=== PATIENT | male | born 1955 | race Caucasian/White ===

== ENCOUNTER 2024-06-12 11:44 | Day surgery (SDC) | payer BC ==
[~2024-06-12] VITALS: Ht 190.5 cm; Wt 113.4 kg
[~2024-06-12 11:44] MED LIST: ATROPINE SULFATE 1% OPHTH SOLN 2ML BTL OD SCH; FLURBIPROFEN 0.03% OPHTH SOLN 2.5 ML OD SCH; LANS30CA93 PO; LR 1,000 ML IV SCH; PHENYLEPHRINE 2.5% OPHTH SOL 2ML OD SCH; TETRACAINE 0.5% OPHTH SOLN 4ML OD SCH
[2024-06-12] MEDS ORDERED: fentaNYL 100 MCG/2 ML INJECTION As Ordered ONE (15:02)
[2024-06-12] MEDS ORDERED: MIDAZOLAM INJ 2MG/2ML VIAL As Ordered ONE (15:02)
[2024-06-12] MEDS: LIDOCAINE 1% SDV 5ML VIAL As Ordered ONE (15:40)
[2024-06-12] MEDS: CEFUROXIME 1MG/0.1ML INTRACAMERAL INJ As Ordered ONE (15:40)
[2024-06-12 15:47] VITALS: BP 147/86; TEMP 97.2; O2SAT 97
== END 2024-06-12 16:11 | disposition home or self-care (01) ==
LOC: M SDC 11:44
PROVIDERS: ATTEND Ophthalmology
DX: H25.11 Age-related nuclear cataract, right eye (principal); G47.30 Sleep apnea, unspecified; K21.9 Gastro-esophageal reflux disease without esophagitis; Z79.899 Other long term (current) drug therapy
CPT/HCPCS: 66984; J0697; J2250; J3010; V2632